=== PATIENT | male | born 1970 | race Caucasian/White ===

== ENCOUNTER 2016-04-07 21:01 | Observation (INO) | payer OTHER ==
[2016-04-07 21:40] LABS: BASO% 1.2 % (0.0-0.8); EOS# 0.08 X1000 (0.0-0.7); HEMATOCRIT 21.4 % (42.0-52.0); HEMOGLOBIN 6.2 g/dL (14.0-18.0); LYMPH# 0.64 X1000 (1.2-3.4); LYMPH% 15.8 % (20.5-51.1); MANUAL DIFF NEEDED? NO; MCH 20.6 PG (27-31); MCV 71.1 FL (81-99); MONO% 9.9 % (1.7-9.3); MPV 8.3 FL (7.4-10.4); NEUT% 71.1 % (42.2-75.2); PLT 327 X1000 (130-400); RBC 3.01 XMIL (4.7-6.1)
[2016-04-07 21:56] LABS: INR 1.15; PROTIME 12.2 Seconds (9.2-11.7)
[2016-04-07 21:57] LABS: AGAP 16; ALBUMIN 3.6 g/dL (3.5-5.0); ALKALINE PHOSPHATASE 108 U/L (32-122); BUN 4 mg/dL (8-22); CALCIUM 8.4 mg/dL (8.8-10.2); CHLORIDE 96 mmol/L (98-107); COSMO 271; GOT 28 U/L (10-34); GPT 17 U/L (10-44); POTASSIUM 3.9 mmol/L (3.5-5.1); SODIUM 132 mmol/L (136-145); TCO2 20 mmol/L (25-35); TOTAL BILIRUBIN 0.71 mg/dL (0.20-1.00); TOTAL PROTEIN 6.7 g/dL (6.3-8.3)
--- NOTE | 2016-04-07 22:23 | PROVIDER DOCUMENTATION ---
HPI-Abdominal Pain/GI Problem - General Chief Complaint: Abnormal Lab[s] Stated Complaint: ABNORMAL LABS Time Seen by Provider: 04/07/16 22:07 Source: patient Allergies/Adverse Reactions: Patient Allergies Allergy/AdvReac Type Severity Reaction Status Date / Time No Known Allergies Allergy Verified 07/29/15 23:57 Home Medications: Home Medication List Medication Instructions Recorded Confirmed Last Taken Type Losartan [Cozaar] 50 mg PO HS 02/03/14 07/29/15 07/28/15 History Oxcarbazepine [Trileptal] 600 mg PO BID 02/03/14 07/29/15 07/29/15 05:30 History Pregabalin [Lyrica] 300 mg PO BID 02/03/14 07/29/15 07/29/15 05:30 History Sitagliptin Phos/Metformin HCl 1 each PO BID 02/03/14 07/29/15 07/29/15 05:30 History [Janumet 50-1,000 mg Tablet] Nadolol [Corgard] 40 mg PO DAILY #60 tablet 08/01/15 Unknown Rx Pantoprazole [Protonix] 40 mg PO BID #60 tablet 08/01/15 Unknown Rx Sucralfate [Carafate Liquid] 1 gm PO Q6H #120 udc 08/01/15 Unknown Rx - History of Present Illness-ABD Nature of Presenting Problems: 46 y/o WM c hx of cirrhosis, DM and previes PUD with melena, c/o feeling weak. Was called by Dr. Naylor's office who also contacted Dr. Clemens to be seen here for low H&H. Does not know if he has history of varices, but he is currently on Nadolol. Was last scoped in August of last year per patient, and found to have bleeding ulcers at that time. 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 Besides feeling weak, patient does not report other symptoms at this time. Denies abdominal pain, black, tarry or blood in stool, nausea or vomiting. Review of Systems - Adult - REVIEW OF SYSTEMS - ADULT Constitutional: reports: see abelardo DEAL. denies: chills, fever Eyes: reports: no symptoms reported. denies: decreased vision, blurred vision, double vision, eye pain Ears, Nose, Mouth & Throat: reports: no symptoms reported. denies: ear pain, nose pain, throat pain Cardiovascular: reports: no symptoms reported. denies: chest pain, palpitations Respiratory: reports: no symptoms reported. denies: cough, shortness of breath , wheezing Gastrointestinal: reports: no symptoms reported. denies: abdominal pain, diarrhea, nausea, vomiting Genitourinary: reports: no symptoms reported Musculoskeletal: reports: no symptoms reported. denies: bone pain, back pain, muscle aches Integumentary: reports: no symptoms reported. denies: rash Neurological: reports: no symptoms reported. denies: dizziness/vertigo, headache/migraines Psychiatric: reports: no symptoms reported Endocrine: reports: no symptoms reported Hematologic/Lymphatic: reports: no symptoms reported Allergic/Immunologic: reports: no symptoms reported All Other Systems: Reviewed and Negative Past History - Adult - PAST MEDICAL HISTORY-ADULT Review of Records: reports: Old Records Reviewed, Nursing Assessment Review, Medications Reviewed, Social history reviewed & non-contributory. Major Childhood Illnesses: reports: denies history Cardiovascular: reports: HTN, hyperlipidemia Respiratory: reports: denies history Gastrointestinal: reports: GI bleed, hepatitis, other (PUD) Genitourinary: reports: denies history Musculoskeletal: reports: denies history Neurological: reports: denies history Psychiatric: reports: bipolar Endocrine/Immune: reports: denies history Other Conditions: reports: denies history - PRIOR SURGERIES/PROCEDURES Surgical/Procedure History: reports: reviewed, not pertinent - PRIOR HOSPITALIZATIONS Prior Hospitalizations: reports: none - IMMUNIZATION STATUS Childhood Immunizations: UTD, See Nurse Assessment Flu Vaccine: See Nurse Assessment - FAMILY HISTORY Family History: reviewed, not pertinent - SOCIAL HISTORY Smoking: denies Substance Use: none/never Alcohol Use Frequency: sober (former use) Living Situation: family Physical Exam-General - PHYSICAL EXAM-ADULT Initial Vital Signs Reviewed: Yes - CONSTITUTIONAL General Appearance: appears well, alert, no apparent distress - EYES Eyes: PERRL/EOMI, pale conjunctivae - HEAD, EARS, NOSE, MOUTH & THROAT HENMT: normocephalic/atraumatic, moist mucous membranes - NECK Neck: non-tender, full range of motion, supple, normal inspection - RESPIRATORY Respiratory: chest non-tender, lungs clear, normal breath sounds, no pleuratic chest pain, no respiratory distress, no accessory muscle use. negative: respiratory distress, decreased breath sounds, accessory muscle use, crackles, rales, rhonchi, wheezing - CARDIOVASCULAR Cardiovascular: normal peripheral pulses, regular rate, rhythm - GASTROINTESTINAL (ABDOMEN) Abdominal Exam: normal bowel sounds, non tender, soft, no organomegaly, no pulsatile mass, distended - MUSCULOSKELETAL Back Exam: normal inspection Extremity: normal gait Peripheral Pulses: radial (R): 2+, radial (L): 2+, dorsalis-pedis (R): 2+, dorsalis-pedis (L): 2+ - SKIN Integumentary: normal color, normal turgor, warm/dry - NEUROLOGIC Neurologic: grossly normal, no motor/sensory deficits - PSYCHIATRIC Psych/Mental Status: normal mood/affect, normal thought content, normal thought process Progress - PLAN OF CARE/RESULTS Progress/Plan/Lab Results: Vital Signs Temp Pulse Resp BP Pulse Ox 04/07/16 21:05 98.0 F 93 H 16 132/74 100 No Known Allergies Allergy (Verified 07/29/15 23:57) Losartan [Cozaar] 50 mg PO HS 02/03/14 Oxcarbazepine [Trileptal] 600 mg PO BID 02/03/14 Pregabalin [Lyrica] 300 mg PO BID 02/03/14 Sitagliptin Phos/Metformin HCl [Janumet 50-1,000 mg Tablet] 1 each PO BID Nadolol [Corgard] 40 mg PO DAILY #60 tablet 08/01/15 Pantoprazole [Protonix] 40 mg PO BID #60 tablet 08/01/15 Sucralfate [Carafate Liquid] 1 gm PO Q6H #120 udc 08/01/15 Laboratory 04/07/16 04/07/16 04/07/16 21:25 21:25 21:25 WBC RBC Hgb Hct MCV MCH MCHC RDW Std Deviation Plt Count MPV Immature Gran % (Auto) Neut % (Auto) Lymph % (Auto) Mason % (Auto) Eos % (Auto) Baso % (Auto) Immature Gran # (Auto) Neut # (Auto) Lymph # (Auto) Mason # (Auto) Eos # (Auto) Baso # (Auto) PT 12.2 H INR 1.15 PTT (Actin FS) 28.0 Sodium 132 L Potassium 3.9 Chloride 96 L Carbon Dioxide 20 L Anion Gap 16 BUN 4 L Creatinine 0.7 Estimated GFR/1.73 m2 > 60 BUN/Creatinine Ratio 6 Glucose 275 H Calculated Osmolality 271 Calcium 8.4 L Total Bilirubin 0.71 AST 28 ALT 17 Alkaline Phosphatase 108 Total Protein 6.7 Albumin 3.6 Globulin 3.1 Albumin/Globulin Ratio 1.2 Blood Type O POSITIVE Antibody Screen NEGATIVE 04/07/16 21:25 WBC 4.06 L RBC 3.01 L Hgb 6.2 L Hct 21.4 L MCV 71.1 L MCH 20.6 L MCHC 29.0 L RDW Std Deviation 21.6 H Plt Count 327 MPV 8.3 Immature Gran % (Auto) 0.0 Neut % (Auto) 71.1 Lymph % (Auto) 15.8 L Mason % (Auto) 9.9 H Eos % (Auto) 2.0 Baso % (Auto) 1.2 H Immature Gran # (Auto) 0.00 Neut # (Auto) 2.89 Lymph # (Auto) 0.64 L Mason # (Auto) 0.40 Eos # (Auto) 0.08 Baso # (Auto) 0.05 PT INR PTT (Actin FS) Sodium Potassium Chloride Carbon Dioxide Anion Gap BUN Creatinine Estimated GFR/1.73 m2 BUN/Creatinine Ratio Glucose Calculated Osmolality Calcium Total Bilirubin AST ALT Alkaline Phosphatase Total Protein Albumin Globulin Albumin/Globulin Ratio Blood Type Antibody Screen Orders Category Date Time Status Saline Loc DIRECTED Care 04/07/16 21:14 Active Transfuse .Give-Transfuse Care 04/07/16 22:10 Active CBC WITH ELECTRONIC DIFF [HEME] Stat Lab 04/07/16 21:25 Completed COMPREHENSIVE METABOLIC PANEL [CHEM] Stat Lab 04/07/16 21:25 Completed LRPC (RED CELLS) [BBK] Stat Lab 04/07/16 22:10 Uncollected OCCULT BLOOD SCREENING [STOOL] Stat Lab 04/07/16 Completed PROTIME WITH INR [COAG] Stat Lab 04/07/16 21:25 Completed PTT [COAG] Stat Lab 04/07/16 21:25 Completed TYPE & SCREEN [BBK] Stat Lab 04/07/16 21:25 Completed 0.9% Sodium Chloride Inj [Ns] 500 ml Med 04/07/16 22:10 Discontinued IV As Directed heme occult negative - CONSULTS/PCP/HOSPITALIST Notification #1 *Consult/PCP/Hospitalist*: Dr. Hebert, hospitalist Time Discussed: 23:22 Reason/Comments: anemia Consult Disposition: Admit Departure - Departure Time of Disposition Order: 23:21 DIAGNOSIS: Anemia Qualifiers: Anemia type: unspecified type Qualified Code(s): D64.9 - Anemia, unspecified Disposition: ADMITTED INPATIENT 09 Certified Medical Emergency: Emergent Condition: Stable Attestation - Physician/ RAMY Attestation Patient care was provided by Advanced Practice Provider:: Yes Advanced Practice Provider:: Geetha Sanders Advanced Practice Provider documentation review:: The Mid-level provider documentation, treatment plan and medical decision making was reviewed by the physician who agrees with all treatment and medical decision making by the MLP.
[2016-04-08] MEDS ORDERED: TYLENOL PO PRN (02:56)
[2016-04-08] MEDS ORDERED: ZOFRAN IV PRN (02:56)
[2016-04-08 03:46] LABS: IRON SATURATION 3 %; TIBC 401 ug/dL; TOTAL IRON 11 ug/dL (53-167); UNBOUND IRON 390 ug/dL (112-346)
[2016-04-08 04:02] LABS: FERRITIN 8 ng/mL (30-400)
[2016-04-08] MEDS: PROTONIX IV SCH ×2 (04:36→14:17)
[2016-04-08] MEDS: CARAFATE LIQUID PO SCH ×4 (04:36→20:33)
[2016-04-08] MEDS: SODIUM CHLORIDE 0.9% INJ SCH (04:37)
[2016-04-08 04:47] LABS: URINE CULTURE NEEDED? NO; URINE MICRO REVIEW NEEDED? NO; URINE SOURCE CLEAN CATCH
[2016-04-08 04:57] LABS: BILIRUBIN URINE NEGATIVE (NEGATIVE); BLOOD URINE NEGATIVE (NEGATIVE); COLOR STRAW; GLUCOSE URINE 100 mg/dL (NEGATIVE); LEUKOCYTES URINE NEGATIVE (NEGATIVE); NITRITE URINE NEGATIVE (NEGATIVE); PH URINE 6.5; PROTEIN URINE NEGATIVE (NEGATIVE); SP GRAVITY URINE 1.002; TURBIDITY URINE CLEAR (CLEAR); UROBILINOGEN URINE NORMAL (NORMAL)
[2016-04-08 05:00] LABS: UR EPITHELIAL CELLS <10 /HPF (<10); URINE BACTERIA NEGATIVE /HPF; URINE RBC <10 /HPF (<10); URINE WBC <10 /HPF (<10)
[2016-04-08] MEDS ORDERED: NS 500 ML ONE (05:12)
[2016-04-08] MEDS: NS 500 ML IV ONE ×2 (05:30→12:11)
--- NOTE | 2016-04-08 06:04 | HISTORY AND PHYSICAL ---
PRIMARY CARE PROVIDER: Dr. Herbert. CRIB PAD MAKER: Dr. Clemens. CHIEF COMPLAINT: Abnormal labs and weakness. HISTORY OF PRESENT ILLNESS: Mr. Arcos is a 46-year-old male who presented to the ER tonight with complaints of weakness and abnormal labs after visiting Dr. Herbert's office. He reports that since February he has begun having some swelling in his bilateral lower extremities. Since the beginning of March, he states that he as well as his and family have noticed that he has become progressively more pale and over the past few days he has become more and more weak and fatigued. He presented to Dr. Herbert's office today for which they did blood work and called and informed him that his hemoglobin and hematocrit were low and that he needed to present to the ER for further evaluation. The patient does have a recent admission in July of 2015 for which he was having some hematemesis and did use alcohol. He was evaluated by Dr. Clemens who performed an EGD and found that the patient had grade C to D erosive esophagitis which was most likely the source of his bleeding. He also had large esophageal varices, large hiatal hernia, erosive gastritis, and erosive duodenitis noted as well. Since his discharge in July, the patient states that he has taken his medications regularly, has not had any further problems with gastrointestinal bleeding, and has also stopped drinking alcohol. He denies any headache, dizziness, shortness of breath, chest pain, abdominal pain, nausea, vomiting, diarrhea, dysuria or urinary frequency. He also denies any hematemesis or melena. He also denies any pain, numbness or tingling in extremities. Upon evaluation in the ER, the patient was found to have a hemoglobin of 6.2 and hematocrit of 21.4. He is showing no signs of bleeding at this time. The patient's vital signs are within normal limits with heart rate of 88, respirations 20, blood pressure 140/77, oxygen saturation 98% on room air. At this time, we will admit the patient for further treatment and evaluation of his anemia. We are going to transfuse the patient and place a consult with Dr. Clemens. REVIEW OF SYSTEMS: A 14-point review of systems was conducted with the patient and all were negative except for pertinent positives as mentioned in the above HPI. PAST MEDICAL HISTORY: 1. Epilepsy. 2. Diabetes mellitus type 2. 3. Hypertension. 4. Remote history of hepatitis B as an . 5. Gastroesophageal reflux disease. 6. Bipolar disease. 7. Asthma. 8. Depression. 9. Hyperlipidemia. 10.Gastroesophageal reflux disease. 11.Esophageal varices. 12.Gastritis. 13.Duodenitis. 14.Fatty liver. PAST SURGICAL HISTORY: 1. Sebaceous cyst removed from his left buttock. 2. Esophagogastroduodenoscopy in July [address] Clemens. SOCIAL HISTORY: The patient denies any tobacco or illicit drug use. He reports that he has not drank any alcohol since his discharge from the hospital in July 2015. He currently is disabled at this time and lives at home with his . FAMILY HISTORY: Positive for diabetes mellitus and questionable uterine cancer in his mother who is still living. He reports that his father from an unknown cancer which could have been likely related to environmental exposures from his workplace. He reports that his siblings are all healthy and have no major medical problems. ALLERGIES: The patient reports no known allergies. HOME MEDICATIONS: 1. Carafate liquid 1 g p.o. every 6 hours. 2. Janumet mg tablet 1 p.o. b.i.d. 3. Lyrica 300 mg p.o. b.i.d. 4. Protonix 40 mg p.o. b.i.d. 5. Trileptal 600 mg p.o. b.i.d. 6. Nadolol 40 mg p.o. daily. 7. Losartan 50 mg p.o. at nighttime. DIAGNOSTIC DATA AND LABORATORY RESULTS: White blood cell count 4.06, red blood cell count 3.01, hemoglobin 6.2, hematocrit 21.4, MCV 71.1, platelet count 327. PT 12.2, INR 1.15, PTT 28. Sodium 132, potassium 3.9, chloride 96, bicarb 20, BUN 4, creatinine 0.7, glucose 275, calcium 8.4. Liver function tests within normal limits. Albumin 3.6. PENDING DIAGNOSTIC STUDIES: Anemia profile, hemoglobin A1c, and an EKG. PHYSICAL EXAMINATION: VITAL SIGNS: Temperature 98.4. Heart rate 88. Respirations 20. Blood pressure is 140/77. Oxygen saturation is 98% on room air. GENERAL: The patient is a pleasant 46-year-old male who was resting in the ER stretcher. He was in no acute distress. He was awake, alert and able to answer all questions appropriately. HEENT: Head is atraumatic, normocephalic. Pupils are equal, round, reactive to light, 3 mm bilaterally, and brisk. Sclerae white. No lesions noted. Conjunctivae pale. Oral mucosa is moist. Oropharynx is clear. NECK: Supple. Trachea midline. No JVD noted. No carotid bruits noted upon auscultation bilaterally. CARDIOVASCULAR: Normal S1, S2. No murmurs, gallops or rubs appreciated. Regular rate and rhythm. PULMONARY: The patient has symmetrical chest expansion bilaterally. Lung sounds were clear to auscultation in bilateral full aiken. ABDOMEN: The patient's abdomen is soft, nontender, does appear slightly distended though the patient denies this being any worse than his normal appearance. Bowel sounds were present in all four quadrants, were normoactive. EXTREMITIES: The patient does have slight 1+ pitting edema noted in bilateral lower extremities from approximately midcalf down. No other signs of edema, cyanosis or clubbing noted. Pulse, motor and sensory intact in all extremities. Pedal pulses are 3+ bilaterally. Radial pulses are 3+ bilaterally. INTEGUMENTARY: The patient's skin color is pale, warm, dry and intact. No lesions or sores noted. Capillary refill is less than 3. NEUROLOGIC: Patient is alert and oriented to person, place, time and situation. Cranial nerves II through XII are grossly intact. ASSESSMENT AND PLAN: 1. Microcytic anemia. We have placed an order for anemia profile to be performed. The patient at this time is showing no signs of bleeding. We will go ahead and transfuse him with 2 units of packed red blood cells and will repeat a CBC and reevaluate. We have placed a consult with Dr. Clemens with Gastroenterology. Will await her evaluation and further recommendations. We will go ahead and continue at this time his Carafate, nadolol, and Protonix 40 mg every 12 hours, and will closely monitor his hemodynamic status and continue to follow. 2. Weakness. This is likely secondary to the patient's anemia. We will continue to rule out other etiology and monitor for any worsening symptoms. 3. Hypertension. Will continue the patient's Cozaar. 4. Diabetes mellitus type 2. We will place the patient on sliding scale insulin Lispro and do pattern fingerstick blood sugars. Will continue to monitor. We have also ordered a hemoglobin A1c and are awaiting those results at this time. 5. Epilepsy. Will continue the patient's Lyrica. 6. Bipolar disorder. Will continue the patient's Trileptal. The patient will be placed on a medical floor with telemetry. He will have vital signs every 4 hours. DVT prophylaxis will be provided with SCDs. GI prophylaxis is being provided with Protonix 40 mg IV every 12 hours. We will do strict intake and output. He will be n.p.o. at this time until evaluated by Gastroenterology in the morning. Will repeat his CBC in the morning and monitor him closely. Further orders and recommendations pending hospital course, diagnostic studies, and physician evaluation. Dictated by JESSICA Rodriguez for Kenney Hebert MD
[2016-04-08 06:18] LABS: HEMATOCRIT 24.2 % (42.0-52.0); HEMOGLOBIN 7.4 g/dL (14.0-18.0)
--- NOTE | 2016-04-08 07:31 | EKG Report ---
Test Performed on : 04/08/2016 07:22:18 AM Test Reason : Weakness/Anemia, Poss. surgical patient Blood Pressure : / mmHG Vent. Rate : 075 BPM Atrial Rate : 075 BPM P-R Int : 182 ms QRS Dur : 082 ms QT Int : 412 ms P-R-T Axes : 035 -13 021 degrees QTc Int : 460 ms Normal sinus rhythm. Inferior infarct (cited on or before 25-JAN-2011) Anteroseptal infarct , age undetermined Abnormal ECG When compared with ECG of 30-JUL-2015 07:59, Anteroseptal infarct is now present Confirmed by Logan SOTOMAYOR, Alonso Nuñez ([id number]) on 04/10/2016 5:19:16 PM
[2016-04-08] MEDS: HUMALOG SUBQ SCH ×4 (08:08→21:45)
[2016-04-08] MEDS ORDERED: PREGABALIN 300 MG PO SCH (09:00)
[2016-04-08] MEDS: LYRICA PO SCH ×2 (09:51→20:32)
[2016-04-08] MEDS: TRILEPTAL PO SCH ×2 (09:52→20:33)
[2016-04-08] MEDS: CORGARD PO SCH (09:52)
[2016-04-08] MEDS ORDERED: MYLICON DROPS (DOSE) MISC ONE (16:51)
[2016-04-08] MEDS ORDERED: DIPRIVAN 1% ONE (17:13)
[2016-04-08] MEDS ORDERED: FENTANYL ONE (17:13)
[2016-04-08] MEDS ORDERED: VERSED ONE (17:16)
[2016-04-08] MEDS ORDERED: LR 1,000 ML ONE (17:30)
[2016-04-08] MEDS ORDERED: XYLOCAINE-MPF 2% ONE (17:30)
[2016-04-08] MEDS ORDERED: GOLYTELY PO ONE (17:30)
--- NOTE | 2016-04-08 17:49 | CONSULTATION ---
DATE OF CONSULTATION: 04/08/2016 REASON FOR CONSULTATION: Weakness. REFERRING PHYSICIAN: Dr. Carol Herbert MD. PRIMARY HOSPITALIST: Dr. Dionicio Locke MD. HISTORY OF PRESENT ILLNESS: The patient is a 46-year-old white male with known alcoholic liver disease, history of peptic ulcer disease, and reflux esophagitis, who presents with 3-4 weeks of weakness. He presented to his primary care doctor's office and was found to have a hemoglobin of 6.9. His repeat CBC at [facility] was 6.2. Because of the unexplained drop in hemoglobin, we are asked to evaluate the patient. PAST MEDICAL HISTORY: 1. Epilepsy. 2. Diabetes 2. 3. Hypertension. 4. Hepatitis B. 5. GERD. 6. Bipolar disease. 7. Asthma. 8. Depression. 9. Hyperlipidemia. 10. Known large esophageal varices. 11. Severe reflux esophagitis. 12. Gastritis. 13. Duodenitis. 14. Fatty liver. PAST SURGICAL HISTORY: 1. Sebaceous cyst. 2. EGD 07/29/2015. FAMILY HISTORY: Positive for diabetes and uterine cancer. SOCIAL HISTORY: Remarkable in that he uses the following medications. 1. Carafate. 2. Janumet. 3. Lyrica. 4. Prilosec. 5. Trileptal. 6. Nadolol. 7. Losartan. REVIEW OF SYSTEMS: Remarkable for 3-4 weeks of weakness. He denies chest pain, shortness of breath, nausea, vomiting, or bowel changes. He describes black stools. He notes that he has stopped using all alcohol for the last 6 months. This may be contributing to his increased sense of well-being. PHYSICAL EXAMINATION: Vital Signs: Blood pressure is 124/77, pulse 71, respirations 16, temperature of 98.2 degrees. His ASA is 3. HEENT: Negative for jaundice. His conjunctivae are pale. His sclerae are anicteric. His oropharyngeal mucosal membranes are moist. There is poor dentition. Cardiac Exam: He has regular rate and rhythm with no gallops or rubs. Pulmonary Exam: Lungs are clear to auscultation with normal expiratory effort. Cardiovascular Exam: Reveals regular rate and rhythm with no gallops, murmurs, or rubs. Abdomen: He has normoactive bowel sounds. The abdomen is soft, nontender, with no rebound or guarding. Extremities: Bilaterally are negative for cyanosis, clubbing, or edema. Neurologic: He is alert and oriented x4 with appropriate mood, affect, and memory. OBJECTIVE DATA: Remarkable for hemoglobin of 6.2 with hematocrit of 21.4 and a white count of 4.06. He has 327,000 platelets. His PT is 12.2 with an INR of 1.15 and a PTT of 28. Sodium is 132, potassium 3.9, chloride 96, CO2 20, BUN 4, creatinine 0.7, with a glucose of 275. Calcium is 8.4, total bilirubin 0.71, AST 28, ALT 17, alkaline phosphatase 68, , albumin 33, and ferritin of 8. RECOMMENDATION: 1. We will plan to proceed with EGD at this time. 2. Transfuse as indicated. 3. Continue Protonix and Carafate as you are doing. 4. Should his evaluation be negative, I will proceed with a screening colonoscopy tomorrow.
[2016-04-08] MEDS: COZAAR PO SCH (20:33)
--- NOTE | 2016-04-08 21:35 | OPERATIVE NOTE ---
PROCEDURE DATE: 04/08/2016 REFERRING PHYSICIAN: Carol Herbert MD. INDICATION FOR PROCEDURE: 1. Anemia. 2. History of peptic ulcer disease. 3. Erosive esophagitis. 4. History of alcohol liver disease. PROCEDURE PERFORMED: Esophagogastroduodenoscopy. CONSENT: Informed consent was obtained from the patient prior to the procedure. The risks, benefits, and alternatives were discussed. PERFORMING PHYSICIAN: Beverly Clemens MD. ASSISTANTS: 1. [facility] 2. DEANNE Nunez. 3. Enma Kerns CRNA. 4. Jerome Pacheco MD (anesthesia). FINDINGS: 1. After sedation was achieved, the upper endoscope was inserted to the 2nd portion of the duodenum. The hypopharynx appeared normal. In the esophagus just below the LES, there were multiple large venous varices found. Upon further advancement of the scope, there was a salmon-colored tongue and mucosa that spanned from 37-49 cm. He did also have mucosal evidence of gastritis in the stomach. In the tubular esophagus, there were least 5 columns of esophageal varices. There was no stigmata of bleeding. There was a salmon-colored tongues of esophageal mucosa that spanned from 35-37 cm. There was also grade C erosive esophagitis with a distal esophageal ulcer at the GE junction. In light of the possible Quesada's mucosa, no biopsies were taken at this time. 2. GE junction at 37 cm from the hiatal hernia. 3. Blood in stool. 4. Duodenitis. COMPLICATIONS: There were no complications. ESTIMATED BLOOD LOSS: Less than 1 mL. SPECIMENS REMOVED: None. IMPRESSIONS: 1. Large esophageal varices with no stigmata of bleeding. 2. 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 3. Large whitish-based superficial ulcer at the GE junction. The GE junction was measured at 37 cm from the incisors. There was a hiatal hernia that spanned from 37-40 cm. There was old blood scattered throughout the gastric lumen with no stigmata of bleeding. There was mild nonerosive gastritis in the antrum, fundus, and body. There was a pre-pyloric ulcer in the antrum with the whitish superficial base with no stigmata of bleeding. In the duodenum, there was duodenitis with no evidence of carlos alberto ulceration. There were a few small erosions but no active bleeding. After the lumen was decompressed, the scope was removed. Removed without incident. IMPRESSION: 1. Large esophageal varices. 2. Bo[place] D Arc-colored tongue and mucosa suggestive of possible Quesada's esophagus. 3. Blood in the stool. 4. with ulceration. 5. Blood in the gastric lumen. 6. Nonbleeding pre-pyloric ulcer. 7. Duodenitis. 8. No source of bleeding found. RECOMMENDATION: 1. Continue to monitor hemoglobin and hematocrit and transfuse as needed. 2. Continue Protonix 40 mg IV q.12 hours. Please note at the time of discharge, he will need Prilosec twice a day for 6 weeks and then resume once daily. 3. Continue Carafate suspension 1 g p.o. 4 times a day for a total of 12 weeks and then stop. 4. Will schedule the patient for a repeat outpatient colonoscopy on 04/09/2016. 5. The patient should be scheduled for an elective outpatient banding of his esophageal varices. 6. Additional recommendations to follow based on his clinical course.
[2016-04-09] MEDS: CARAFATE LIQUID PO SCH ×4 (04:24→22:24)
[2016-04-09] MEDS: SODIUM CHLORIDE 0.9% INJ SCH ×2 (04:24→18:32)
[2016-04-09] MEDS: PROTONIX IV SCH ×2 (04:25→18:32)
[2016-04-09] MEDS: HUMALOG SUBQ SCH ×4 (07:00→22:25)
[2016-04-09 07:26] LABS: BASO% 2.2 % (0.0-0.8); EOS# 0.11 X1000 (0.0-0.7); HEMATOCRIT 25.3 % (42.0-52.0); HEMOGLOBIN 7.5 g/dL (14.0-18.0); LYMPH% 21.9 % (20.5-51.1); MANUAL DIFF NEEDED? YES; MCH 21.8 PG (27-31); MCHC 29.6 g/dL (33-37); MCV 73.5 FL (81-99); MONO# 0.42 X1000 (0.11-0.59); MONO% 11.5 % (1.7-9.3); MPV 8.6 FL (7.4-10.4); NEUT% 61.4 % (42.2-75.2); PLT 308 X1000 (130-400); RBC 3.44 XMIL (4.7-6.1)
[2016-04-09 07:45] LABS: AGAP 10; ALBUMIN 2.9 g/dL (3.5-5.0); ALKALINE PHOSPHATASE 85 U/L (32-122); BUN 6 mg/dL (8-22); CALCIUM 8.1 mg/dL (8.8-10.2); CHLORIDE 103 mmol/L (98-107); COSMO 277; GOT 19 U/L (10-34); GPT 11 U/L (10-44); POTASSIUM 3.8 mmol/L (3.5-5.1); SODIUM 137 mmol/L (136-145); TCO2 24 mmol/L (25-35); TOTAL BILIRUBIN 1.11 mg/dL (0.20-1.00); TOTAL PROTEIN 5.8 g/dL (6.3-8.3)
[2016-04-09 07:57] LABS: EOS 4 % (1-10); LYMPHS 16 % (21-51)
[2016-04-09] MEDS: LYRICA PO SCH ×2 (09:12→22:24)
[2016-04-09] MEDS: TRILEPTAL PO SCH ×2 (11:13→22:24)
[2016-04-09] MEDS: CORGARD PO SCH (11:13)
[2016-04-09] MEDS ORDERED: NS 500 ML IV ONE (11:26)
[2016-04-09] MEDS ORDERED: MYLICON DROPS (DOSE) MISC ONE (17:55)
[2016-04-09] MEDS ORDERED: VERSED ONE (18:13)
[2016-04-09] MEDS ORDERED: DIPRIVAN 1% ONE (18:13)
--- NOTE | 2016-04-09 19:44 | OPERATIVE NOTE ---
PROCEDURE DATE: 04/09/2016 REFERRING PHYSICIAN: Carol Herbert MD INDICATION FOR PROCEDURE: 1. Anemia. 2. Heme-positive stools. 3. Esophagogastroduodenoscopy negative for a cause of blood loss. PROCEDURE PERFORMED: Colonoscopy, incomplete. CONSENT: Informed consent was obtained from the patient prior to the procedure. The risks, benefits, and alternatives were discussed. MEDICATIONS: The patient received monitored anesthesia care. PERFORMING PHYSICIAN: Beverly Clemens MD. ASSISTANTS: 1. [facility] 2. Tuyet Santo RN. 3. Richard Sepulveda CRNA. 4. Trevon Ocampo MD (Anesthesia). COMPLICATIONS: There were no complications. ESTIMATED BLOOD LOSS: None. SPECIMENS REMOVED: None. FINDINGS: After sedation was achieved, the colonoscope was inserted to 40 cm. We were unable to advance the scope further due to the presence of solid stool obscuring more than 70% of the lumen. Given our need to determine if he has lesions that would account for his blood loss, the procedure was terminated. IMPRESSION: Inadequate colonoscopy bowel prep preventing completion of exam. RECOMMENDATION: 1. The patient has been hemodynamically stable during this admission. Therefore, I would schedule him for an outpatient colonoscopy. 2. He may resume his regular diet. 3. Because his hemoglobin has been between 7.4 and 7.5 during this admission, I recommend transfusing 1 unit prior to discharge. 4. He underwent esophagogastroduodenoscopy on 04/08/2016 that was remarkable for large esophageal varices with no stigmata of bleeding. He will need to be scheduled for outpatient banding of his esophageal varices in the next 2-3 weeks. 5. I will recommend a repeat colonoscopy in the next 1-2 months. We will need to perform on a separate day to minimize the risk of infection following banding of his esophageal varices. 6. We will have the patient return to clinic to assess interval progress in approximately 4 weeks. These recommendations were discussed with the patient, his and his mother.
[2016-04-09] MEDS: COZAAR PO SCH (22:24)
[2016-04-10] MEDS: PROTONIX IV SCH (03:31)
[2016-04-10] MEDS: CARAFATE LIQUID PO SCH ×2 (03:31→08:31)
[2016-04-10] MEDS: SODIUM CHLORIDE 0.9% INJ SCH (03:31)
--- NOTE | 2016-04-10 04:07 | PROGRESS NOTE ---
DATE: 04/09/2016 SUBJECTIVE: The patient reports doing fine. Denies any vomiting blood or blood in the stools. Denies any sensation of dizziness. No abdominal pain. No fever or chills. OBJECTIVE: Vital Signs: Temperature 98.2 degrees, heart rate 64, respiratory rate 20, blood pressure 131/77, O2 saturation 100% on room air. General Examination: This is a 46-year-old male, lying in bed, in no acute distress. HEENT: Head is normocephalic, atraumatic. Anicteric sclerae and pale conjunctivae. Mucous membranes moist. Neck: Supple. No jugular venous distention noted. No carotid bruits. No lymphadenopathy. No thyromegaly. Cardiovascular Examination: S1, S2 heard. No murmurs, gallops, or rubs. Regular rate and rhythm. Respiratory Examination: Clear bilaterally to auscultation. No work of breathing or using accessory muscles. Abdomen: A little bit distended, but nontender to palpation. Bowel sounds present. No organomegaly. Extremities: No clubbing, cyanosis, or edema. Peripheral pulses present in both legs. Neurological Examination: Patient is alert and oriented x3. Able to move 4 extremities. LABORATORY DATA: White cell count is 3.65, hemoglobin 7.5, hematocrit 25.3, platelets 308,000. BMP unremarkable. ASSESSMENT AND PLAN: 1. Gastrointestinal bleeding. The patient has been evaluated by Dr. 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 There was also blood in the gastric lumen and also duodenitis, but no source of bleeding found. On the colonoscopy, there was so it was not possible to have a good evaluation of the colon, so plan from Dr. Beverly Clemens is to repeat this colonoscopy in 2 months as an outpatient. We are going to transfuse 1 unit of blood, consider the hemoglobin has been between 7 and 7.5 most of the time. 2. Generalized weakness. Of course, is secondary to the patient's anemia. Patient has been transfused 1 unit of blood. We will check CBC tomorrow to see how he does. 3. Hypertension. We will continue with the same home medications. 4. Diabetes type 2. Patient is on sliding scale insulin. We will continue with the same management. 5. Bipolar disorder. We will continue with Trileptal.
[2016-04-10] MEDS: HUMALOG SUBQ SCH ×2 (06:34→11:11)
[2016-04-10 06:49] LABS: BASO% 1.9 % (0.0-0.8); EOS# 0.12 X1000 (0.0-0.7); EOS% 3.3 % (0.0-10.0); HEMATOCRIT 29.1 % (42.0-52.0); HEMOGLOBIN 8.9 g/dL (14.0-18.0); IMM GRAN# 0.02 X1000 (0.0-0.04); IMM GRAN% 0.5 % (0.0-0.5); LYMPH% 24.6 % (20.5-51.1); MANUAL DIFF NEEDED? NO; MCH 22.6 PG (27-31); MCHC 30.6 g/dL (33-37); MONO# 0.45 X1000 (0.11-0.59); MONO% 12.3 % (1.7-9.3); MPV 8.9 FL (7.4-10.4); NEUT% 57.4 % (42.2-75.2); PLT 301 X1000 (130-400); RBC 3.93 XMIL (4.7-6.1)
[2016-04-10 07:14] LABS: AGAP 11; BUN 8 mg/dL (8-22); CALCIUM 8.4 mg/dL (8.8-10.2); CHLORIDE 102 mmol/L (98-107); COSMO 281; POTASSIUM 4.5 mmol/L (3.5-5.1); SODIUM 138 mmol/L (136-145); TCO2 25 mmol/L (25-35)
[2016-04-10 07:48] VITALS: BP 125/82
[2016-04-10] MEDS: CORGARD PO SCH (08:30)
[2016-04-10] MEDS: LYRICA PO SCH (08:31)
[2016-04-10] MEDS: TRILEPTAL PO SCH (08:31)
[2016-04-10] MEDS ORDERED: LR 1,000 ML ONE (09:43)
[2016-04-10] MEDS ORDERED: EXTENSION SET 32 IN 4522 ONE (09:43)
[2016-04-10] MEDS ORDERED: XYLOCAINE-MPF 2% ONE (09:43)
[2016-04-10] MEDS ORDERED: ANESTHESIA PB SET 88 IN 5742 ONE (09:43)
--- NOTE | 2016-04-10 21:03 | DISCHARGE SUMMARY ---
ADMISSION DATE: 04/08/2016 DISCHARGE DATE: 04/10/2016 CONSULTATIONS: Beverly Clemens M.D. PERTINENT PROCEDURES: 1. Esophagogastroduodenoscopy performed by Dr. Clemens. 2. Incomplete colonoscopy secondary to poor bowel prep by Dr. Clemens. DISCHARGE DIAGNOSES: 1. Gastrointestinal bleed. Patient underwent upper GI that basically showed large esophageal varices but no signs of bleeding. There was blood in the gastric lumen and duodenitis but no source of bleeding found. The colonoscopy was incomplete due to poor bowel prep. The patient did receive 1 unit of blood. Stable. 2. Generalized weakness secondary to anemia. Stable. 3. Hypertension. Continue home medications. 4. Diabetes mellitus type 2. Continue with home medicines. 5. Bipolar. Continue Trileptal. HOSPITAL COURSE: Briefly, Mr. Arcos is a 46-year-old, male presenting to the ED with complaints of weakness visiting Dr. Herbert's office. He reports since February he begun having some swelling in his bilateral lower extremities. He also noticed that since February he has become progressively more pale as well as weak and fatigued. He presented to Dr. Herbert's office for blood work. They called him that his hemoglobin and hematocrit were low, and he presented to the ED for further evaluation and management. Patient also had a recent admission in July 2015 for which he was having some hematemesis and did use alcohol. He was evaluated by Dr. Clemens who performed an EGD and found the patient to have a grade C to D erosive esophagitis which was most likely the source of the bleeding. He had large esophageal varices, large hiatal hernia, erosive gastritis and erosive duodenitis noted. Since that time in July the patient has taken his medication regularly he has not had any problems with any GI bleeding. He stopped drinking alcohol. The patient was admitted to the medical telemetry floor with a GI consultation. He underwent EGD with Dr. Clemens. 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 There was also blood in the gastric lumen and also duodenitis but no source of bleeding found on the colonoscopy. It was incomplete because of poor bowel prep. She suggested a repeat colonoscopy in 1- 2 weeks as outpatient. He was transfused with a unit of blood. His hemoglobin and hematocrit did come up. His CBCs were monitored daily. He was continued on his home medications. Dr. Clemens recommends Prilosec b.i.d. as well as continuing on his Carafate for 12 more weeks and he will need to follow up with her for banding of esophageal varices in the next 2-3 weeks. The patient is being discharged home today. VITAL SIGNS ON DISCHARGE: Temperature is 98.6 degrees, heart rate 75, respirations 20, blood pressure 125/82, O2 is 99% on room air. DISCHARGE DIET: Regular. DISCHARGE MEDICATIONS: 1. Cozaar 50 mg p.o. at bedtime. 2. Trileptal 600 mg p.o. b.i.d. 3. Lyrica 300 mg p.o. b.i.d. 4. Janumet mg, 1 each p.o. b.i.d. 5. Carafate 1 g p.o. q.6 hours for 12 weeks. 6. Corgard 40 mg p.o. daily. 7. Prilosec 40 mg p.o. b.i.d. for 6 weeks then 40 mg p.o. daily after the 6 weeks. FOLLOWUP: 1. The patient is being discharged home. 2. He can follow up with his primary care physician. 3. He will need to follow up with Dr. Clemens in the next 1-2 weeks for repeat colonoscopy and banding of esophageal varices. 4. Patient can return to the ED for any worsening of symptoms. 5. He was again educated to avoid alcohol and to follow GERD lifestyle changes. DISCHARGE TIME: 33 minutes. Dictated by JESSICA Alfredo for Dionicio Locke MD MTDD
== END 2016-04-10 12:45 | disposition home or self-care (01) ==
LOC: ED 21:01 → EDIPHOLD 22:17 → INTOOBSV 22:17 → EDIPHOLD 04-08 01:43 → UNDOADMIN 04-08 01:43 → EDIPHOLD 04-08 14:53 → 3N 04-08 14:53
PROVIDERS: ATTEND Internal Medicine
DX: K92.2 Gastrointestinal hemorrhage, unspecified (principal); D50.9 Iron deficiency anemia, unspecified; I85.00 Esophageal varices without bleeding; K22.10 Ulcer of esophagus without bleeding; K29.80 Duodenitis without bleeding; K25.9 Gastric ulcer, unspecified as acute or chronic, without hemorrhage or perforation; R53.1 Weakness; E11.9 Type 2 diabetes mellitus without complications; I10 Essential (primary) hypertension; F31.9 Bipolar disorder, unspecified; K70.9 Alcoholic liver disease, unspecified; G62.9 Polyneuropathy, unspecified; I25.10 Atherosclerotic heart disease of native coronary artery without angina pectoris; K44.9 Diaphragmatic hernia without obstruction or gangrene; K21.9 Gastro-esophageal reflux disease without esophagitis; K20.9 Esophagitis, unspecified; K70.0 Alcoholic fatty liver; K29.70 Gastritis, unspecified, without bleeding; E78.5 Hyperlipidemia, unspecified; J45.909 Unspecified asthma, uncomplicated; G40.909 Epilepsy, unspecified, not intractable, without status epilepticus; E66.9 Obesity, unspecified; M19.90 Unspecified osteoarthritis, unspecified site; R60.0 Localized edema; Z86.19 Personal history of other infectious and parasitic diseases; Z79.899 Other long term (current) drug therapy; Z79.84 Long term (current) use of oral hypoglycemic drugs; Z87.11 Personal history of peptic ulcer disease; Z68.26 Body mass index [BMI] 26.0-26.9, adult; Z83.3 Family history of diabetes mellitus; Z80.49 Family history of malignant neoplasm of other genital organs
CPT/HCPCS: 36415; 36430; 80048; 80053; 81001; 82270; 82607; 82728; 82746; 82948; 83036; 83540; 83550; 85014; 85018; 85025; 85610; 85730; 86850; 86900; 86901; 86920; 93005; 96374; 96376; C9113; J1815; J2250; J3010; J7040; J7120; P9016; S0164